=== PATIENT | female | born 1945 | race Caucasian/White ===

== ENCOUNTER → 2020-04-10 | Outpatient (CLI) | payer MEDICARE | END | disposition home or self-care (01) | LOC: CFH 09:19 | PROVIDERS: ATTEND Internal Medicine Cardiovascular Disease | DX: Z13.6 Encounter for screening for cardiovascular disorders (principal); E78.00 Pure hypercholesterolemia, unspecified; R01.1 Cardiac murmur, unspecified | CPT/HCPCS: 75571 ==

== ENCOUNTER 2020-06-09 08:37 | Day surgery (SDC) | payer MEDICARE ==
[~2020-06-09] VITALS: Ht 162.6 cm; Wt 57.3 kg
[2020-06-09 09:14] VITALS: BP 143/82
[2020-06-09] MEDS ORDERED: No medications (09:18)
[2020-06-09] MEDS ORDERED: PLEASE ENTER HEIGHT AND WEIGHT MC SCH (09:30)
[2020-06-09] MEDS ORDERED: SODIUM CHLORIDE 0.9% 1,000 ML IV SCH ×2 (09:30→12:00)
[2020-06-09] MEDS ORDERED: FENTANYL PF 100 MCG/2ML ONE (10:06)
[2020-06-09] MEDS ORDERED: MIDAZOLAM 1 MG/ML, 5ML ONE (10:06)
[2020-06-09] MEDS ORDERED: BIVALIRUDIN 250 MG ONE (10:07)
[2020-06-09] MEDS ORDERED: HEPARIN 1,000 UNITS/ML, 10ML ONE (10:07)
[2020-06-09] MEDS ORDERED: VERAPAMIL 2.5 MG/ML, 2ML ONE (10:07)
[2020-06-09] MEDS ORDERED: LIDOCAINE-MPF 1%, 5ML ONE (10:07)
[2020-06-09] MEDS ORDERED: TICAGRELOR 90 MG TABLET ONE (10:07)
[2020-06-09 10:34] LABS: ANION GAP 9 mmol/L (5-15); CALCIUM 9.1 mg/dL (8.5-10.1); CHLORIDE 110 mmol/L (98-107); CREATININE 1.09 mg/dL (0.55-1.02)
[2020-06-09 10:52] LABS: BASOPHILS % (AUTO) 1 % (0-1); EOSINOPHILS % (AUTO) 1 % (1-7); LYMPHOCYTES % (AUTO) 16 % (22-44); MEAN CORPUSCULAR HGB CONC 33.4 g/dL (32.4-35.8); MEAN PLATELET VOLUME 9.2 fL (7.4-10.4); MONOCYTES % (AUTO) 13 % (2-9); NEUTROPHILS % (AUTO) 70 % (42-75); PLATELET COUNT 217 x10^3/uL (130-400); RED CELL DISTRIBUTION WIDTH 13.3 % (9.6-15.2)
[2020-06-09 10:54] LABS: MD NO
[2020-06-09] MEDS ORDERED: METOPROLOL SUCCINATE 25 MG TAB.ER.24H PO ONE (13:00)
[2020-06-09] MEDS ORDERED: RIVA20TA PO (13:28)
[2020-06-09] MEDS ORDERED: METO25TA91 PO (13:28)
== END 2020-06-09 14:10 | disposition home or self-care (01) ==
LOC: CACL 08:37
PROVIDERS: ATTEND Internal Medicine Cardiovascular Disease
DX: I34.0 Nonrheumatic mitral (valve) insufficiency (principal); I34.1 Nonrheumatic mitral (valve) prolapse; E78.5 Hyperlipidemia, unspecified; E11.9 Type 2 diabetes mellitus without complications; Z88.5 Allergy status to narcotic agent; Z82.49 Family history of ischemic heart disease and other diseases of the circulatory system
CPT/HCPCS: 36415; 76937; 80048; 85025; 93005; 93458; 99156; 99157; C1769; C1894; J1644; J2250; J3010; Q9967; J0583